=== PATIENT | female | born 1970 | race Caucasian/White ===

== ENCOUNTER 2018-09-10 09:53 | Emergency (ER) | payer BC ==
--- NOTE | 2018-09-10 10:06 | EDM.PDOC ---
ED HPI GENERAL MEDICAL PROBLEM - General Chief Complaint: Respiratory Problem Stated Complaint: SICK Time Seen by Provider: 09/10/18 10:06 Source of Information: Reports: Patient History Limitations: Reports: No Limitations - History of Present Illness INITIAL COMMENTS - FREE TEXT/NARRATIVE: HISTORY AND PHYSICAL: History of present illness: Patient is a 40-year-old female here with complaint of cough and fever 5 days. She states in her chest with coughing but denies chest pain or shortness of breath. She states she's had a sore throat and diarrhea but denies abdominal pain, nausea, vomiting. She denies significant past medical history. Review of systems: As per history of present illness and below otherwise all systems reviewed and negative. Past medical history: As per history of present illness and as reviewed below otherwise noncontributory. Surgical history: As per history of present illness and as reviewed below otherwise noncontributory. Social history: No reported history of drug or alcohol abuse. Family history: As per history of present illness and as reviewed below otherwise noncontributory. Physical exam: General: Patient sitting comfortably in no acute distress and nontoxic appearing HEENT: Atraumatic, normocephalic, pupils reactive, negative for conjunctival pallor or scleral icterus, mucous membranes moist, throat clear, neck supple, nontender, trachea midline. No meningeal signs. Lungs: Clear to auscultation, breath sounds equal bilaterally, chest nontender. Heart: S1S2, regular, negative for clicks, rubs, or overt murmur. Abdomen: Soft, nondistended, nontender. Negative for masses or hepatosplenomegaly. Negative for costovertebral tenderness. Pelvis: Stable nontender. Genitourinary: Deferred. Rectal: Deferred. Extremities: Atraumatic, negative for cords or calf pain. Neurovascular unremarkable. Neuro: Awake, alert, oriented. Cranial nerves II through XII unremarkable. Cerebellum unremarkable. Motor and sensory unremarkable throughout. Exam nonfocal. Notes: Diagnostics: Influenza, chest x-ray Therapeutics: None Prescriptions: Ventolin inhaler Azithromycin Impression: Acute bronchitis Plan: 1. Take medication as instructed 2. Follow up with primary care provider 3. Return to ED as needed as discussed Definitive disposition and diagnosis as appropriate pending reevaluation and review of above. chest burning Pain Score (Numeric/FACES): 5 - Related Data Allergies Allergy/AdvReac Type Severity Reaction Status Date / Time atomoxetine [From Strattera] Allergy Facial Verified 09/10/18 10:06 Swelling morphine Allergy Chest Pain Verified 09/10/18 10:06 Sulfa (Sulfonamide Allergy Hives Verified 09/10/18 10:06 Antibiotics) Home Meds: Home Meds Albuterol [Ventolin HFA] 1 puff INH Q4H #1 inhaler 09/10/18 [Rx] Azithromycin [Zithromax] 250 mg PO ASDIRECTED #1 dosepk 09/10/18 [Rx] ED ROS GENERAL - Review of Systems Review Of Systems: ROS reveals no pertinent complaints other than HPI. ED EXAM, GENERAL - Physical Exam Exam: See Below (See dictation) Course - Vital Signs Last Recorded V/S: Last Vital Signs Temp Pulse 96 09/10/18 10:06 Resp 18 09/10/18 10:06 BP 148/92 H 09/10/18 10:06 Pulse Ox 96 09/10/18 10:06 Departure - Departure Time of Disposition: 11:12 Disposition: Home, Self-Care 01 Condition: Good Clinical Impression: Acute bronchitis - Discharge Information Prescriptions: Albuterol [Ventolin HFA] 1 puff INH Q4H #1 inhaler Azithromycin [Zithromax] 250 mg PO ASDIRECTED #1 dosepk Referrals: PCP,Unknown [Primary Care Provider] - Forms: ED Department Discharge Additional Instructions: The following information is given to patients seen in the emergency department who are being discharged to home. This information is to outline your options for follow-up care. We provide all patients seen in our emergency department with a follow-up referral. The need for follow-up, as well as the timing and circumstances, are variable depending upon the specifics of your emergency department visit. If you don't have a primary care physician on staff, we will provide you with a referral. We always advise you to contact your personal physician following an emergency department visit to inform them of the circumstance of the visit and for follow-up with them and/or the need for any referrals to a consulting specialist. The emergency department will also refer you to a specialist when appropriate. This referral assures that you have the opportunity for follow-up care with a specialist. All of these measure are taken in an effort to provide you with optimal care, which includes your follow-up. Under all circumstances we always encourage you to contact your private physician who remains a resource for coordinating your care. When calling for follow-up care, please make the office aware that this follow-up is from your recent emergency room visit. If for any reason you are refused follow-up, please contact the [facility] Emergency Department at and asked to speak to the emergency department charge nurse. [facility] [address] [place] [id number] [id number] 1. Take medication as instructed 2. Follow up with primary care provider 3. Return to ED as needed as discussed
--- NOTE | 2018-09-10 11:05 | CR ---
EXAMINATION: Two-view chest (PA and Lateral views). HISTORY: Cough. FINDINGS: The trachea is midline. The cardiomediastinal silhouette is within normal limits. No pulmonary infiltrates, effusions or pneumothorax. Osseous structures appear unremarkable. IMPRESSION: No acute cardiopulmonary process.
== END 2018-09-10 11:19 | disposition home or self-care (01) ==
LOC: MW.ED 09:53
DX: J20.9 Acute bronchitis, unspecified (principal); Z88.2 Allergy status to sulfonamides; Z88.5 Allergy status to narcotic agent; Z88.8 Allergy status to other drugs, medicaments and biological substances
CPT/HCPCS: 71046; 71046-26; 87804; 99283

== ENCOUNTER 2019-04-15 11:06 | Emergency (ER) | payer BC ==
[2019-04-15] MEDS ORDERED: Ketorolac 60 MG/2 ML SDV IM ONE (11:37)
[2019-04-15] MEDS ORDERED: Ondansetron 4 MG Tab.DIS PO ONE (11:37)
[2019-04-15 12:12] LABS: BLOOD UREA NITROGEN,BUN 14 mg/dL (7.0-18.0); CARBON DIOXIDE,CO2 24.1 mmol/L (21.0-32.0); CHLORIDE,CL 99 mmol/L (98-107); GLUCOSE RANDOM 186 mg/dL (74-106); POTASSIUM,K 3.5 mmol/L (3.5-5.1); SODIUM,NA 138 mmol/L (136-145)
--- NOTE | 2019-04-15 12:32 | EDM.PDOC ---
ED HPI GENERAL MEDICAL PROBLEM - General Chief Complaint: Respiratory Problem Stated Complaint: COUCH, HEADACHE, STOMACH ACHE Time Seen by Provider: 04/15/19 11:20 Source of Information: Reports: Patient History Limitations: Reports: No Limitations - History of Present Illness INITIAL COMMENTS - FREE TEXT/NARRATIVE: HISTORY AND PHYSICAL: History of present illness: Patient is a 48-year-old female who presents to the emergency room with complaints of cough, subjective fever and GI upset. She states over the past one week she has had respiratory symptoms along with the rest of her family members. Her and daughter are currently being treated for acute bronchitis and she is concerned that she also needs treatment. She states that she does have some nasal drainage which she believes is causing her to have some stomach upset, nausea and diarrhea. Patient denies any chills, headache, change in vision, syncope or near syncope. Denies any chest pain, back pain, shortness of breath. Denies any abdominal pain, vomiting, constipation or dysuria. Has not noted any blood in urine or stool. Patient has been eating and drinking appropriately. No previous history of respiratory illness or smoking. Review of systems: As per history of present illness and below otherwise all systems reviewed and negative. Past medical history: As per history of present illness and as reviewed below otherwise noncontributory. Surgical history: As per history of present illness and as reviewed below otherwise noncontributory. Social history: See social history for further information Family history: As per history of present illness and as reviewed below otherwise noncontributory. Physical exam: General: Well-developed and well-nourished 48 showed female. Alert and oriented. Nontoxic appearing and in no acute distress. HEENT: Atraumatic, normocephalic, pupils equal and reactive bilaterally, negative for conjunctival pallor or scleral icterus, mucous membranes moist, TMs normal bilaterally, throat clear, neck supple, nontender, trachea midline. No drooling or trismus noted. No meningeal signs. No hot potato voice noted. Lungs: Clear to auscultation, breath sounds equal bilaterally, chest nontender. Dry nonproductive cough is noted. Heart: S1S2, regular rate and rhythm without overt murmur Abdomen: Soft, nondistended, nontender. Negative for masses or hepatosplenomegaly. Negative for costovertebral tenderness. Pelvis: Stable nontender. Skin: Intact, warm, dry. No lesions or rashes noted. Extremities: Atraumatic, moves all extremities per self without difficulty or deficits, negative for cords or calf pain. Neurovascular unremarkable. Neuro: Awake, alert, oriented. Cranial nerves II through XII unremarkable. Cerebellum unremarkable. Motor and sensory unremarkable throughout. Exam nonfocal. Diagnostics: CBC, BMP, chest x-ray Therapeutics: None Prescription: Phenergan w/ cod (#4oz) Zpak Impression: Bronchitis Plan: 1. Please use Tylenol and/or Ibuprofen as needed for pain and fever management. 2. Get plenty of Rest. Encourage fluids to prevent dehydration. 3. Please follow up with your primary care provider. Return to the ED as needed as discussed. Definitive disposition and diagnosis as appropriate pending reevaluation and review of above. 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 ED EXAM, GENERAL - Physical Exam Exam: See Below (See dictation) Course - Vital Signs Last Recorded V/S: Last Vital Signs Temp 97 F 04/15/19 11:30 Pulse 97 04/15/19 11:30 Resp 20 04/15/19 11:30 BP 168/114 H 04/15/19 11:30 Pulse Ox 96 04/15/19 11:30 - Orders/Labs/Meds Orders: Active Orders 24 hr Category Date Time Status Chest 2V [CR] Stat Exams 04/15/19 11:37 Taken Labs: Laboratory Tests 04/15/19 04/15/19 Range/Units 11:50 11:50 WBC 6.48 (4.0-11.0) K/uL RBC 4.79 (4.30-5.90) M/uL Hgb 14.3 (12.0-16.0) g/dL Hct 41.9 (36.0-46.0) % MCV 87.5 (80.0-98.0) fL MCH 29.9 (27.0-32.0) pg MCHC 34.1 (31.0-37.0) g/dL RDW Std Deviation 41.7 (28.0-62.0) fl RDW Coeff of Kaleb 13 (11.0-15.0) % Plt Count 186 (150-400) K/uL MPV 9.40 (7.40-12.00) fL Neut % (Auto) 66.5 (48.0-80.0) % Lymph % (Auto) 21.5 (16.0-40.0) % [place] % (Auto) 7.3 (0.0-15.0) % Eos % (Auto) 4.5 (0.0-7.0) % Baso % (Auto) 0.2 (0.0-1.5) % Neut # (Auto) 4.3 (1.4-5.7) K/uL Lymph # (Auto) 1.4 (0.6-2.4) K/uL [place] # (Auto) 0.5 (0.0-0.8) K/uL Eos # (Auto) 0.3 (0.0-0.7) K/uL Baso # (Auto) 0.0 (0.0-0.1) K/uL Nucleated RBC % 0.0 /100WBC Nucleated RBCs # 0 K/uL Sodium 138 (136-145) mmol/L Potassium 3.5 (3.5-5.1) mmol/L Chloride 99 (98-107) mmol/L Carbon Dioxide 24.1 (21.0-32.0) mmol/L BUN 14 (7.0-18.0) mg/dL Creatinine 0.8 (0.6-1.0) mg/dL Est Cr Clr Drug Dosing 86.75 mL/min Estimated GFR (MDRD) > 60.0 ml/min Glucose 186 H (74-106) mg/dL Calcium 8.7 (8.5-10.1) mg/dL Meds: Medications Discontinued Medications Generic Name Dose Route Start Last Admin Trade Name Any PRN Reason Stop Dose Admin Ketorolac Tromethamine 60 mg 04/15/19 11:37 04/15/19 11:51 Toradol IM 04/15/19 11:38 60 mg ONETIME ONE Administration Ondansetron HCl 4 mg 04/15/19 11:37 04/15/19 11:51 Zofran Odt PO 04/15/19 11:38 4 mg ONETIME ONE Administration Departure - Departure Time of Disposition: 12:31 Disposition: Home, Self-Care 01 Clinical Impression: Bronchitis - Discharge Information Instructions: Acute Bronchitis, Adult, [id number] Referrals: Kelsie Byers, [employer] ENGINEER [Primary Care Provider] - Forms: ED Department Discharge Additional Instructions: The following information is given to patients seen in the emergency department who are being discharged to home. This information is to outline your options for follow-up care. We provide all patients seen in our emergency department with a follow-up referral. The need for follow-up, as well as the timing and circumstances, are variable depending upon the specifics of your emergency department visit. If you don't have a primary care physician on staff, we will provide you with a referral. We always advise you to contact your personal physician following an emergency department visit to inform them of the circumstance of the visit and for follow-up with them and/or the need for any referrals to a consulting specialist. The emergency department will also refer you to a specialist when appropriate. This referral assures that you have the opportunity for follow-up care with a specialist. All of these measure are taken in an effort to provide you with optimal care, which includes your follow-up. Under all circumstances we always encourage you to contact your private physician who remains a resource for coordinating your care. When calling for follow-up care, please make the office aware that this follow-up is from your recent emergency room visit. If for any reason you are refused follow-up, please contact the [facility] Emergency Department at and asked to speak to the emergency department charge nurse. [facility] [address] [place] [address] [facility] [address] [place] [address] 1. Please use Tylenol and/or Ibuprofen as needed for pain and fever management. 2. Get plenty of Rest. Encourage fluids to prevent dehydration. 3. Please follow up with your primary care provider. Return to the ED as needed as discussed. - My Orders Last 24 Hours: My Active Orders 04/15/19 11:37 Chest 2V [CR] Stat - Assessment/Plan Last 24 Hours: My Active Orders 04/15/19 11:37 Chest 2V [CR] Stat
--- NOTE | 2019-04-15 12:58 | CR ---
Chest: Two views of the chest were obtained. Comparison: Prior chest x-ray of 09/10/18. Heart size and mediastinum are normal. Lungs are clear. Bony structures are unremarkable for the patient's age. Impression: Nothing acute is seen on two-view chest x-ray. Diagnostic code #1 MTDD
== END 2019-04-15 12:57 | disposition home or self-care (01) ==
LOC: MW.ED 11:06
DX: J40 Bronchitis, not specified as acute or chronic (principal); I10 Essential (primary) hypertension; Z88.2 Allergy status to sulfonamides; Z88.5 Allergy status to narcotic agent; Z88.8 Allergy status to other drugs, medicaments and biological substances
CPT/HCPCS: 36415; 71046; 80048; 85025; 96372; 99283; A9270; J1885

== ENCOUNTER 2021-09-11 14:39 | Emergency (ER) | payer BC | END 2021-09-11 15:55 | disposition home or self-care (01) | LOC: MW.ED 14:39 | DX: J32.0 Chronic maxillary sinusitis (principal); I10 Essential (primary) hypertension; E11.9 Type 2 diabetes mellitus without complications; Z88.2 Allergy status to sulfonamides; Z88.5 Allergy status to narcotic agent; Z88.8 Allergy status to other drugs, medicaments and biological substances | CPT/HCPCS: 99283 ==

== ENCOUNTER 2023-03-12 10:23 | Emergency (ER) | payer BC ==
[2023-03-12] MEDS ORDERED: Acetaminophen 500 MG Tab PO ONE (10:39)
[2023-03-12] MEDS ORDERED: Ibuprofen 600 MG Tab PO ONE (10:39)
[2023-03-12] MEDS ORDERED: Ondansetron 4 MG Tab.DIS PO ONE (10:39)
[2023-03-12] MEDS ORDERED: Cefdinir 300 MG Cap PO ONE (10:39)
[2023-03-12 10:47] LABS: APPEARANCE,URINE CLEAR; BILIRUBIN,URINE NEGATIVE (NEGATIVE); GLUCOSE,URINE NEGATIVE (NEGATIVE); KETONES,URINE NEGATIVE (NEGATIVE); LEUKOCYTE ESTERASE,URINE NEGATIVE (NEGATIVE); NITRITE,URINE NEGATIVE (NEGATIVE); OCCULT BLOOD,URINE NEGATIVE (NEGATIVE); PH,URINE 5.5 (5.0-8.0); PROTEIN,URINE NEGATIVE (NEGATIVE); UROBILINOGEN,URINE 0.2 EU/dL (<2.0)
[2023-03-12 10:52] LABS: COLOR,URINE STRAW
== END 2023-03-12 10:52 | disposition home or self-care (01) ==
LOC: MW.ED 10:23
DX: N39.0 Urinary tract infection, site not specified (principal); N12 Tubulo-interstitial nephritis, not specified as acute or chronic; I10 Essential (primary) hypertension; E11.9 Type 2 diabetes mellitus without complications; Z86.16 Personal history of COVID-19; Z79.899 Other long term (current) drug therapy; Z88.2 Allergy status to sulfonamides; Z88.5 Allergy status to narcotic agent; Z88.8 Allergy status to other drugs, medicaments and biological substances
CPT/HCPCS: 81003; 99284; A9270; 99283

== ENCOUNTER 2023-08-21 06:31 | Day surgery (SDC) | payer BC ==
[2023-08-21] MEDS: Lactated Ringers 1,000 ML IV SCH (07:21)
[2023-08-21] MEDS ORDERED: propofoL 50 ML ONE (07:31)
[2023-08-21] MEDS ORDERED: dexmedeTOMIDine HCl 200 MCG/2 ML SDV ONE (07:34)
[2023-08-21] MEDS ORDERED: Ketamine 500 mg/10 ML MDV ONE (07:34)
[2023-08-21] MEDS ORDERED: Rocuronium Bromide 50 MG/5 ML Syringe ONE ×2 (07:34→08:50)
[2023-08-21] MEDS ORDERED: fentaNYL 250 MCG/5 ML SDV ONE (07:34)
[2023-08-21] MEDS ORDERED: Albuterol 0.083% 2.5 MG/3 ML Neb Soln NEB PRN (07:44)
[2023-08-21] MEDS ORDERED: Metoclopramide 10 MG/2 ML SDV IVPUSH PRN (07:44)
[2023-08-21] MEDS ORDERED: Naloxone 0.4 MG/ML SDV IVPUSH PRN (07:44)
[2023-08-21] MEDS ORDERED: droPERidol 5 MG/2 ML SDV IVPUSH PRN (07:44)
[2023-08-21] MEDS ORDERED: Ondansetron 4 MG/2 ML SDV ONE (08:15)
[2023-08-21] MEDS ORDERED: Dexamethasone 4 MG/ML 5 ML MDV ONE (08:15)
[2023-08-21] MEDS ORDERED: ceFAZolin 2 GM Vial ONE (08:15)
[2023-08-21] MEDS ORDERED: Furosemide 40 MG/4 ML VIAL ONE (08:53)
[2023-08-21] MEDS ORDERED: Fluorescein 5 ML Vial ONE (08:53)
[2023-08-21] MEDS ORDERED: Sugammadex Sodium 200 MG/2 ML VIAL IV ONE (09:01)
[2023-08-21] MEDS ORDERED: Ketorolac 30 MG/ML SDV ONE (09:01)
[2023-08-21] MEDS: Ondansetron 4 MG/2 ML SDV IVPUSH PRN ×2 (09:24→13:45)
[2023-08-21] MEDS: HYDROmorphone 1 MG/ML Syringe IVPUSH PRN (09:25)
[2023-08-21] MEDS ORDERED: ClonazePAM 1 MG Tab PO PRN (09:54)
[2023-08-21] MEDS ORDERED: Loratadine 10 MG Tab PO PRN (09:54)
[2023-08-21] MEDS: fentaNYL 50 MCG/ML SDV IVPUSH PRN (09:56)
[2023-08-21] MEDS: Ketorolac 30 MG/ML SDV IVPUSH ONE (10:31)
[2023-08-21] MEDS: Promethazine 25 MG/ML SDV IM PRN (10:32)
[2023-08-21] MEDS: Morphine 4 MG/ML Syringe IVPUSH PRN (14:13)
[2023-08-21] MEDS: Ketorolac 30 MG/ML SDV IVPUSH SCH (15:46)
[2023-08-21] MEDS: oxyCODONE 5 MG Tab PO PRN (18:14)
[2023-08-21] MEDS: Acetaminophen 325 MG Tab PO PRN (20:16)
[2023-08-21] MEDS: ESZOPICLONE 3 MG PO SCH (23:47)
[2023-08-22] MEDS ORDERED: Metoprolol Succinate 25 MG Tab.ER PO SCH (09:00)
[2023-08-22] MEDS ORDERED: Hydrochlorothiazide/Losartan 12.5-50 mg Tab PO SCH (09:00)
[2023-08-22 11:13] LABS: CALCIUM 8.3 mg/dL (8.5-10.1); CREATININE 0.7 mg/dL (0.6-1.0); EST CRCL DRUG DOSING (CG) 92.92 mL/min; POTASSIUM,K 4.1 mmol/L (3.5-5.1)
[2023-08-22 11:17] LABS: BASOPHILS ABSOLUTE AUTO 0.04 K/uL (0.00-0.20); BASOPHILS PERCENT AUTO 0.3 % (0.0-1.0); EOSINOPHILS ABSOLUTE AUTO 0.11 K/uL (0.00-0.45); EOSINOPHILS PERCENT AUTO 0.9 % (0.0-6.0); HEMATOCRIT 33.2 % (37.0-47.0); HEMOGLOBIN 11.9 g/dL (12.0-16.0); IMMATURE GRAN ABSOLUTE AUTO 0.04 K/uL (0.00-0.05); IMMATURE GRAN PERCENT AUTO 0.3 % (0.0-0.4); LYMPHOCYTES ABSOLUTE AUTO 2.44 K/uL (1.00-4.80); LYMPHOCYTES PERCENT AUTO 20.6 % (24.0-44.0); MEAN CORPUSCULAR HEMOGLOBIN 31.2 pg (28.0-32.0); MEAN CORPUSCULAR HGB CONC 35.8 g/dL (32.0-36.0); MEAN CORPUSCULAR VOLUME 86.9 fL (83.0-99.0); MEAN PLATELET VOLUME 9.3 fL (9.4-12.3); MONOCYTES ABSOLUTE AUTO 1.23 K/uL (0.00-0.80); MONOCYTES PERCENT AUTO 10.4 % (0.0-8.0); NEUTROPHILS ABSOLUTE AUTO 7.99 K/uL (1.80-7.70); NEUTROPHILS PERCENT AUTO 67.5 % (41.0-71.0); PLATELET COUNT,PLT 217 K/uL (150-400); RED BLOOD CELL COUNT 3.82 M/uL (4.10-5.30); WHITE BLOOD CELL COUNT,WBC 11.85 K/uL (3.9-11.3)
== END 2023-08-22 10:15 | disposition home or self-care (01) ==
LOC: MW.SDS 06:31 → MW.OB 13:29 → MW.SDS 08-22 10:15
PROVIDERS: ATTEND Obstetrics & Gynecology
DX: D25.9 Leiomyoma of uterus, unspecified (principal); E11.9 Type 2 diabetes mellitus without complications; I10 Essential (primary) hypertension; J45.909 Unspecified asthma, uncomplicated; F41.9 Anxiety disorder, unspecified; F32.A Depression, unspecified; E66.9 Obesity, unspecified; Z68.38 Body mass index [BMI] 38.0-38.9, adult; Z87.891 Personal history of nicotine dependence; Z79.85 Long-term (current) use of injectable non-insulin antidiabetic drugs; Z79.899 Other long term (current) drug therapy
CPT/HCPCS: 36415; 58260; 80048; 85025; 87070; 87075; 87205; A9270; J0131; J0690; J1100; J1170; J1885; J1940; J2270; J2405; J2550; J2704; J3010; J3490; J7030; J7120; 00944

== ENCOUNTER 2023-12-18 16:02 | Emergency (ER) | payer BC ==
[2023-12-18] MEDS: Lidocaine 4% 1 each Patch TOP STA (16:49)
[2023-12-18] MEDS: Acetaminophen/oxyCODONE 325-5 MG Tab PO ONE (16:50)
== END 2023-12-18 18:35 | disposition home or self-care (01) ==
LOC: MW.ED 16:02
DX: S43.402A Unspecified sprain of left shoulder joint, initial encounter (principal); I10 Essential (primary) hypertension; E11.9 Type 2 diabetes mellitus without complications; E66.9 Obesity, unspecified; Z90.49 Acquired absence of other specified parts of digestive tract; Z90.710 Acquired absence of both cervix and uterus; Z79.2 Long term (current) use of antibiotics; Z79.899 Other long term (current) drug therapy; Z88.2 Allergy status to sulfonamides; Z88.5 Allergy status to narcotic agent; Z88.6 Allergy status to analgesic agent; Z91.018 Allergy to other foods; Z88.8 Allergy status to other drugs, medicaments and biological substances; Z68.31 Body mass index [BMI] 31.0-31.9, adult; Z75.8 Other problems related to medical facilities and other health care; W18.30XA Fall on same level, unspecified, initial encounter
CPT/HCPCS: 71101; 73000; 73030; 73502; 99283; A9270